=== PATIENT | female | born 1955 | race Caucasian/White ===

== ENCOUNTER 2017-01-16 13:32 | Emergency (ER) | payer SELFPAY ==
[~2017-01-16] VITALS: Ht 162.6 cm; Wt 68.1 kg
[~2017-01-16 13:32] MED LIST: AZITHROMYCIN250 MG PO; CIPROFLOXACN500 MG PO; FLEXERIL PO; GABAPENTIN300 MG PO; HYCODAN1 ML PO; IBUPROFEN600 MG PO; KEFLEX500 M1 PO; LAMICTAL200 MG PO; MEDDOSEPAK PO; NAPROSYN500 MG PO; NORCO1 TA1 PO; PROZAC20 MG PO; ULTRAM50 M1 PO; ZOFRAN ODT4 MG PO
[2017-01-16] MEDS ORDERED: BENADRYL 50MG C50 MG PO (14:40)
[2017-01-16] MEDS ORDERED: PREDNISONE50 MG PO (14:40)
[2017-01-16 14:45] VITALS: BP 139/78
== END 2017-01-16 14:45 | disposition home or self-care (01) | DRG 607 ==
LOC: ED 13:32
DX: R21 Rash and other nonspecific skin eruption (principal)

== ENCOUNTER 2017-06-11 13:13 | Emergency (ER) | payer SELFPAY ==
[~2017-06-11] VITALS: Ht 162.6 cm; Wt 72.0 kg
[~2017-06-11 13:13] MED LIST changes: +BENADRYL 50MG C50 MG PO; +PREDNISONE50 MG PO
[2017-06-11] MEDS ORDERED: PROZAC20 MG PO (13:34)
[2017-06-11] MEDS ORDERED: HYDROCO/APAP1 T13 PO (13:34)
[2017-06-11] MEDS ORDERED: CLONIDINE0.1 MG PO (13:35)
[2017-06-11] MEDS ORDERED: ADDERALL20 MG PO (13:35)
[2017-06-11] MEDS ORDERED: ZPAK PO (14:06)
[2017-06-11 14:10] VITALS: BP 129/81
== END 2017-06-11 14:10 | disposition home or self-care (01) | DRG 153 ==
LOC: ED 13:13
DX: J06.9 Acute upper respiratory infection, unspecified (principal); F17.210 Nicotine dependence, cigarettes, uncomplicated; J44.9 Chronic obstructive pulmonary disease, unspecified; F31.9 Bipolar disorder, unspecified

== ENCOUNTER 2018-09-01 09:34 | Emergency (ER) | payer MEDICARE ==
[~2018-09-01] VITALS: Ht 162.6 cm; Wt 72.7 kg
[~2018-09-01 09:34] MED LIST changes: +ADDERALL20 MG PO; +CLONIDINE0.1 MG PO; +HYDROCO/APAP1 T13 PO; +ZPAK PO
[2018-09-01] MEDS ORDERED: CLONAZEPAM1 M1 PO (09:58)
[2018-09-01] MEDS ORDERED: BUPROPION HCL300 MG PO (09:58)
[2018-09-01] MEDS ORDERED: RISPERDAL2 MG PO (09:59)
[2018-09-01] MEDS ORDERED: NEURONTIN300 MG PO (10:00)
[2018-09-01] MEDS ORDERED: ACULAR LS0.4 % OD (10:09)
[2018-09-01] MEDS ORDERED: ERYTHROMYCIN O3.5 GM OU (10:09)
[2018-09-01 10:15] VITALS: BP 131/74
== END 2018-09-01 10:15 | disposition home or self-care (01) ==
LOC: ED 09:34
DX: H10.9 Unspecified conjunctivitis (principal); F32.9 Major depressive disorder, single episode, unspecified; F17.200 Nicotine dependence, unspecified, uncomplicated